=== PATIENT | male | born 1955 | race African-American/Black ===

== ENCOUNTER 2016-07-09 10:20 | Emergency (ER) | payer MEDICAID ==
[~2016-07-09] VITALS: Ht 175.3 cm; Wt 95.3 kg
[2016-07-09] MEDS ORDERED: Meclizine 25mg tab ORAL PRN (11:00)
--- NOTE | 2016-07-09 11:07 | Emergency Room Report ---
History of Present Illness General Chief Complaint: Dizziness Source: Patient Present Illness HPI 61 YOM presents with dizziness. Was up to go to restroom at 5am (6 hours prior to ED arrival), felt dizzy when sitting up and ambulating. Went back to sleep. Goode dizzy again when waking up. No precipitating or assoc chest pain, SOB, headache. Assoc with "mild nausea" but no vomiting, diarrhea, fever/chills. "Pre-diabetic" not on medication. No other meds or PMHx. Had this happen years ago, was told "i have fluid in my ears" was given med, cant remember name. No recurrence since. Denies tinnitus, loss of hearing. Denies toppling to one side when walking, focal weakness to extremities. Allergies: Coded Allergies: No Known Allergies (Unverified , 07/09/16) Patient History Past Medical History: none Past Surgical History: none Pertinent Family History: none Social History: Denies: alcohol use, drug use, smoking Immunizations: UTD Reviewed Nursing Documentation: PMH: Agreed, PSxH: Agreed Nursing Documentation-PMH Hx Diabetes: Yes Review of Systems All Other Systems: negative except mentioned in HPI Physical Exam Vital Signs Date Time Temp Pulse Resp B/P Pulse Ox O2 Delivery O2 Flow Rate FiO2 07/09/16 10:39 98.2 78 17 154/104 100 Room Air Sp02 EP Interpretation: reviewed, abnormal General Appearance: normal inspection, well appearing, no apparent distress, alert, GCS 15, non-toxic Head: normocephalic, atraumatic Eyes: bilateral eye EOMI, bilateral eye PERRL ENT: normal ENT inspection, hearing grossly normal, normal voice, other - Negative pedro luis-hallpike. Dizziness brought in when sitting up straight in bed from lying position Neck: normal inspection, full range of motion, supple, no bony tend Respiratory: normal inspection, lungs clear, normal breath sounds, no respiratory distress, no retraction, no wheezing Cardiovascular #1: regular rate, rhythm, no edema Gastrointestinal: normal inspection, normal bowel sounds, non tender, soft, no guarding, no hernia Genitourinary: no CVA tenderness Musculoskeletal: normal inspection, back normal, normal range of motion, Kraig' s Sign negative Neurologic: normal inspection, alert, oriented x3, responsive, botany technician III-XII nml as tested, motor strength/tone normal, speech normal, other - No cerebellar signs. no ataxia on walking bedside. Negative Romberg. Psychiatric: normal inspection, judgement/insight normal, mood/affect normal Skin: normal inspection, normal color, no rash Lymphatic: normal inspection Medical Decision Making Diagnostic Impression: Primary Impression: Vertigo Additional Impression: NEETA (acute kidney injury) ER Course Likely peripheral vertigo, BPPV. VS notable my hypertension, likely from vertigo. Afebrile. Glucose 110. Negative Pedro Luis-hallpike No cerebellar signs of acute focal neuro deficits Dizziness brought in with change of position, ?orthostatic hypotension? PLAN Labs, meclizine, reassess Rhythm Strip Diag. Results EP Interpretation: yes Rate: 92 Rhythm: NSR, no PVC's, other - PVCs Reevaluation Time: 14:05 Last Vital Signs Date Time Temp Pulse Resp B/P Pulse Ox O2 Delivery O2 Flow Rate FiO2 07/09/16 10:39 98.2 78 17 154/104 100 Room Air Status: improved Reevaluation Impression Labs: No leuks. H&H stable. Mild NEETA CT head negative Dizziness resolved. Able to ambulate/change posiiton without vertigo. Dx: Vertigo Likely peripheral Improved with meclizine, IVF hydration Mild NEETA from dehydration Advised PMD followup to recheck kidney function, renal sono Rx meclizine as needed Disposition: HOME, SELF-CARE Scripts Meclizine Hcl* (MECLIZINE*) 25 Mg Tablet 25 MG ORAL BID for 7 Days, #30 TAB Prov: OSVALDO CHAPARRO M.D. 07/09/16 OSVALDO CHAPARRO M.D. Jul 09, 2016 11:07
[2016-07-09 11:28] LABS: BASOPHILS % (AUTO) 1.3 % (0.0-2.0); EOSINOPHILS % (AUTO) 4.5 % (0.0-3.0); LYMPHOCYTES % (AUTO) 25.1 % (20.0-45.0); MEAN CORPUSCULAR HEMOGLOBIN 26.1 PG (27.0-31.0); MEAN CORPUSCULAR VOLUME 82 FL (80-99); MEAN PLATELET VOLUME 7.5 FL (6.5-10.1); MONOCYTES % (AUTO) 9.5 % (1.0-10.0); NEUTROPHILS % (AUTO) 59.6 % (45.0-75.0); PLATELET COUNT 233 K/UL (150-450); RED BLOOD COUNT 5.82 M/UL (4.70-6.10); WHITE BLOOD COUNT 4.6 K/UL (4.8-10.8)
[2016-07-09 11:44] LABS: TROPONIN I < 0.30 ng/mL (<=0.30)
[2016-07-09 11:45] LABS: ALANINE AMINOTRANSFERASE 39 U/L (3-41); ALBUMIN/GLOBULIN RATIO 1.8 (1.0-2.7); ANION GAP 14 (5-15); ASPARTATE AMINO TRANSFERASE 32 U/L (5-40); CALCIUM 9.1 mg/dL (8.6-10.2); CARBON DIOXIDE 27 mEQ/L (20-30); CHLORIDE 98 mEQ/L (98-107); CREATININE 1.3 mg/dL (0.7-1.2); GLOMERULAR FILTRATION RATE > 60 mL/min (>60); HEMOLYSIS 4; POTASSIUM 4.1 mEQ/L (3.4-4.9); SODIUM 139 mEQ/L (135-145); TOTAL PROTEIN 6.5 g/dL (6.6-8.7)
[2016-07-09] MEDS ORDERED: ASPIRIN EC81 MG ORAL (11:49)
--- NOTE | 2016-07-09 11:55 | Diagnostic Imaging Report ---
Indication: Chest Pain Comparison: None A single view chest radiograph was obtained. Findings: Cardiomediastinal appearance is within normal limits for age. Pulmonary vascularity is appropriate. The diaphragmatic contour is smooth and costophrenic angles are sharp. No pleural effusions are identified. The bones are unremarkable. Impression: No acute findings
[2016-07-09] MEDS ORDERED: PRAVASTATIN SOD20 M1 ORAL (12:20)
[2016-07-09 12:58] VITALS: BP 134/84
[2016-07-09] MEDS ORDERED: OMEGA 3 1,0001 EACH PO (13:09)
[2016-07-09] MEDS ORDERED: TAMSULOSIN HCL0.4 MG ORAL (13:10)
[2016-07-09] MEDS ORDERED: CENTRUM SILVER1 EAC2 PO (13:12)
[2016-07-09] MEDS ORDERED: ADVIL200 M2 ORAL (13:14)
[2016-07-09] MEDS ORDERED: TYLENOL EXTRA500 MG ORAL (13:15)
[2016-07-09] MEDS ORDERED: ULORIC80 MG ORAL (13:17)
[2016-07-09] MEDS ORDERED: ULORIC40 MG ORAL (13:26)
[2016-07-09] MEDS ORDERED: COLCHICINE0.6 M1 PO (13:26)
[2016-07-09] MEDS ORDERED: MECLIZINE HCL25 MG ORAL (13:27)
[2016-07-09 14:16] VITALS: BP 127/91
--- NOTE | 2016-07-13 18:20 | Cardiology Report ---
APPROVED REPORT EKG Measurement Heart [id number] Normal sinus rhythm Normal ECG
== END 2016-07-09 14:16 | disposition home or self-care (01) ==
LOC: EMR 11:11
DX: N17.9 Acute kidney failure, unspecified (principal); R42 Dizziness and giddiness; E11.9 Type 2 diabetes mellitus without complications
CPT/HCPCS: 36415; 71010; 80053; 82550; 82553; 82962; 84484; 85025; 93005; 99283

== ENCOUNTER 2017-10-14 10:32 | Inpatient (IN) | payer MEDICAID ==
[~2017-10-14] VITALS: Ht 172.7 cm; Wt 79.4 kg
[2017-10-14 10:32] VITALS: BP 118/82
[~2017-10-14 10:32] MED LIST: ADVIL200 M2 ORAL; ASPIRIN EC81 MG ORAL; CENTRUM SILVER1 EAC2 PO; COLCHICINE0.6 M1 PO; MECLIZINE HCL25 MG ORAL; OMEGA 3 1,0001 EACH PO; PRAVASTATIN SOD20 M1 ORAL; TAMSULOSIN HCL0.4 MG ORAL; TYLENOL EXTRA500 MG ORAL; ULORIC40 MG ORAL; ULORIC80 MG ORAL
[2017-10-14] MEDS ORDERED: Morphine Sulfate 4mg/ml Inj IVP ONE ×2 (11:00→14:30)
[2017-10-14] MEDS ORDERED: Ketorolac 30mg Inj IV ONE (11:00)
[2017-10-14 11:29] LABS: BASOPHILS % (AUTO) 1.5 % (0.0-2.0); EOSINOPHILS % (AUTO) 2.7 % (0.0-3.0); HEMATOCRIT 45.2 % (42.0-52.0); HEMOGLOBIN 14.6 G/DL (14.2-18.0); MEAN CORPUSCULAR VOLUME 80 FL (80-99); MONOCYTES % (AUTO) 7.9 % (1.0-10.0); NEUTROPHILS % (AUTO) 60.9 % (45.0-75.0); PLATELET COUNT 202 K/UL (150-450); RED BLOOD COUNT 5.64 M/UL (4.70-6.10); RED CELL DISTRIBUTION WIDTH 13.7 % (11.6-14.8); WHITE BLOOD COUNT 4.3 K/UL (4.8-10.8)
--- NOTE | 2017-10-14 11:38 | Diagnostic Imaging Report ---
Indication: Back pain Technique: Continuous helical transaxial imaging of the lumbar spine was obtained from the lung bases to the pubic symphysis. No IV contrast was administered. Coronal 2-D reformats were also obtained. Study obtained in a Siemens sensation [address] Total Dose length Product (DLP): 494.[address] Dose Index Volume (CTDIvol): 16.92 mGy Comparison: None Findings: There is no evidence of an acute fracture or malalignment. Height and configuration of the vertebral bodies and intervertebral discs are within normal limits. The facets are unremarkable. There is no soft tissue swelling. Minimal endplate spurs are noted. Aorta is mildly calcified. Impression: Negative lumbar spine CT The CT scanner at [facility] is accredited by the [employer] and the scans are performed using dose optimization techniques as appropriate to a performed exam including Automatic Exposure control.
[2017-10-14 11:39] LABS: APPEARANCE,URINE CLEAR; GLUCOSE, URINE (UA) NEGATIVE (NEGATIVE); KETONES,URINE NEGATIVE (NEGATIVE); NITRITE,URINE NEGATIVE (NEGATIVE); PH,URINE 6 (4.5-8.0)
[2017-10-14 11:40] LABS: ANION GAP 9 mmol/L (5-15); BLOOD UREA NITROGEN 18 mg/dL (7-18); CALCIUM 9.1 MG/DL (8.5-10.1); CARBON DIOXIDE 25 MMOL/L (21-32); CHLORIDE 108 MMOL/L (98-107); CREATININE 1.4 MG/DL (0.55-1.30); POTASSIUM 4.1 MMOL/L (3.5-5.1); SODIUM 142 MMOL/L (136-145)
[2017-10-14 11:41] LABS: INR 1.1 (0.9-1.1)
[2017-10-14 11:44] LABS: ALANINE AMINOTRANSFERASE 38 U/L (12-78); ALBUMIN 3.7 G/DL (3.4-5.0); ALBUMIN/GLOBULIN RATIO 1.1 (1.0-2.7); ALKALINE PHOSPHATASE 97 U/L (46-116); ASPARTATE AMINO TRANSFERASE 21 U/L (15-37); BILIRUBIN,TOTAL 0.4 MG/DL (0.2-1.0)
[2017-10-14 11:46] LABS: BILIRUBIN, URINE NEGATIVE (NEGATIVE); COLOR,URINE PALE YELLOW; PROTEIN,URINE NEGATIVE (NEGATIVE); UROBILINOGEN,URINE NORMAL MG/DL (0.0-1.0)
[2017-10-14 11:47] LABS: LEUKOCYTE ESTERASE ,URINE NEGATIVE (NEGATIVE)
[2017-10-14 12:39] VITALS: BP 118/79
--- NOTE | 2017-10-14 15:54 | Emergency Room Report ---
History of Present Illness General Chief Complaint: Back Pain-No Injury Source: Patient Present Illness HPI Patient presents with severe back pain. It's in her lower back and radiates down both legs. Feels like nerve pain. He's had back issues in the past but this is something completely different. He denies any saddle numbness, fevers, incontinence, blood thinners, oncologic problems, trauma. He has low grade back issues for several months, then 2 days ago, he started feeling this severe pain and having weakness when standing. Pain worsened when bends or sits also. He has had difficulty moving his bowels for several months, not worsened with this increased pain. H/O gout and chronic renal disease. Has been taking colchicine and "a nerve pill" for the pain. (He mentions Pravachol.) Patient is diabetic.not on meds ("borderline") Allergies: Coded Allergies: No Known Allergies (Unverified , 07/09/16) Patient History Past Medical History: see triage record Social History: Denies: smoking Social History Narrative used to work for [employer] Reviewed Nursing Documentation: PMH: Agreed; PSxH: Agreed Nursing Documentation-PMH Hx Diabetes: Yes Review of Systems All Other Systems: negative except mentioned in HPI Physical Exam Vital Signs Date Time Temp Pulse Resp B/P (MAP) Pulse Ox O2 Delivery O2 Flow Rate FiO2 10/14/17 10:28 98.2 70 18 118/82 98 98.2 10/14/17 10:32 Room Air Sp02 EP Interpretation: reviewed, normal General Appearance: well appearing, no apparent distress, GCS 15 Head: normocephalic Eyes: bilateral eye normal inspection, bilateral eye PERRL ENT: moist mucus membranes Neck: supple Respiratory: chest non-tender, lungs clear, normal breath sounds Cardiovascular #1: regular rate, rhythm Cardiovascular #2: 2+ radial (R) Gastrointestinal: normal inspection, normal bowel sounds, non tender, no mass, non-distended Musculoskeletal: digits/nails normal, normal range of motion, no calf tenderness, pelvis stable, tender - lumbar area, SLR with some pain in lumbar area, when sits, "nerve" pain bilat post LE, no bone tenderness Neurologic: alert, oriented x3, motor strength/tone normal, DTRs symmetric, sensory intact, cerebellar normal, normal gait, speech normal Psychiatric: mood/affect normal Reflexes: 2+ knee (R), 2+ knee (L), 2+ ankle (R), 2+ ankle (L) Skin: normal inspection, warm/dry Medical Decision Making Diagnostic Impression: Primary Impression: Intractable low back pain Additional Impression: Renal insufficiency ER Course Patient presents with non-traumatic back pain. DDx: strain, spasm, disk disease , bilateral sciatica, adverse reaction to Pravachol amongst others. No red flag sy or signs except for weakness when standing. Evaluation with labs and CT of back. Treatment with toradol and morphine. Concern over "nerve" pain with standing and moving. The fact this is bilateral is against sciatica. As the pain is worse with changing position, this appears musculoskeletal in origin. No significant muscle spasm appreciated with exam. The patient does not appear to be drug seeking. Labs significant for normal WBC, CMP (some renal insufficiency) and ESR. UA clear. CK normal. Improved with initial analgesia, however states still with severe pain. Worsened with attempt to sit up and move. CT results reviewed with patient. Still with severe pain. MRI ordered. MRI with DJD, no cord lesions/compression. Still severe pain. The etiology of this severe pain is not clear at this time and the patient merits admission, observation and re-evaluation. Admit med. Discussed with Dr. Lopez who accepts patient for medical admission. Laboratory Tests Test 10/14/17 11:00 White Blood Count 4.3 K/UL (4.8-10.8) L Red Blood Count 5.64 M/UL (4.70-6.10) Hemoglobin 14.6 G/DL (14.2-18.0) Hematocrit 45.2 % (42.0-52.0) Mean Corpuscular Volume 80 FL (80-99) Mean Corpuscular Hemoglobin 26.0 PG (27.0-31.0) L Mean Corpuscular Hemoglobin Concent 32.3 G/DL (32.0-36.0) Red Cell Distribution Width 13.7 % (11.6-14.8) Platelet Count 202 K/UL (150-450) Mean Platelet Volume 6.5 FL (6.5-10.1) Neutrophils (%) (Auto) 60.9 % (45.0-75.0) Lymphocytes (%) (Auto) 27.0 % (20.0-45.0) Monocytes (%) (Auto) 7.9 % (1.0-10.0) Eosinophils (%) (Auto) 2.7 % (0.0-3.0) Basophils (%) (Auto) 1.5 % (0.0-2.0) Erythrocyte Sedimentation Rate 10 MM/HR (0-20) Prothrombin Time 10.9 SEC (9.30-11.50) Prothrombin Time INR 1.1 (0.9-1.1) PTT 26 SEC (23-33) Urine Color Pale yellow Urine Appearance Clear Urine pH 6 (4.5-8.0) Urine Specific Bath 1.020 (1.005-1.035) Urine Protein Negative (NEGATIVE) Urine Glucose (UA) Negative (NEGATIVE) Urine Ketones Negative (NEGATIVE) Urine Occult Blood Negative (NEGATIVE) Urine Nitrite Negative (NEGATIVE) Urine Bilirubin Negative (NEGATIVE) Urine Urobilinogen Normal MG/DL (0.0-1.0) Urine Leukocyte Esterase Negative (NEGATIVE) Urine RBC 0-2 /HPF (0 - 0) H Urine WBC 0-2 /HPF (0 - 0) Urine Squamous Epithelial Cells Occasional /LPF Urine Bacteria Occasional /HPF (NONE) Sodium Level 142 MMOL/L (136-145) Potassium Level 4.1 MMOL/L (3.5-5.1) Chloride Level 108 MMOL/L (98-107) H Carbon Dioxide Level 25 MMOL/L (21-32) Anion Gap 9 mmol/L (5-15) Blood Urea Nitrogen 18 mg/dL (7-18) Creatinine 1.4 MG/DL (0.55-1.30) H Estimate Glomerular Filtration Rate > 60 mL/min (>60) Glucose Level 130 MG/DL (74-106) H Uric Acid 6.2 MG/DL (2.6-7.2) Calcium Level 9.1 MG/DL (8.5-10.1) Total Bilirubin 0.4 MG/DL (0.2-1.0) Aspartate Amino Transferase (AST) 21 U/L (15-37) Alanine Aminotransferase (ALT) 38 U/L (12-78) Alkaline Phosphatase 97 U/L (46-116) Total Protein 7.1 G/DL (6.4-8.2) Albumin 3.7 G/DL (3.4-5.0) Globulin 3.4 g/dL Albumin/Globulin Ratio 1.1 (1.0-2.7) CT/MRI/US Diagnostic Results CT/MRI/US Diagnostic Results #1: Imaging Test Ordered: CT back Impression min DJD CT/MRI/US Diagnostic Results #2: Imaging Test Ordered: MRI back Impression DJD, no compressive lesions Last Vital Signs Date Time Temp Pulse Resp B/P (MAP) Pulse Ox O2 Delivery O2 Flow Rate FiO2 10/14/17 23:52 96.8 20 113/68 93 Room Air 96.8 10/14/17 19:49 74 Status: improved Disposition: ADMITTED INPATIENT Condition: Serious Referrals: [facility],REFERRING (PCP) JOY PRADO (Family) Maycol Pappas M.D. Oct 14, 2017 15:54
--- NOTE | 2017-10-14 16:03 | Diagnostic Imaging Report ---
Indication: Back pain Technique: MRI examination of the lumbar spine was performed in a 1.5 Marjan magnet. Sequences obtained include sagittal and axial T1 and T2 fast spin echo, and sagittal STIR. Comparison: none Findings: Bone marrow signal and alignment are normal. The distal part of the spinal cord is normal in appearance. The conus medullaris is seen at about T12. The T12-L1 level: Normal L1-2: Normal L2-3: Mild desiccation of the disc is demonstrated. This level is otherwise unremarkable. L2-3: There is mild narrowing and desiccation of the discs. There is a mild concentric disc bulge and mild hypertrophy of the facets. There is no central canal stenosis. Minimal bilateral foraminal stenosis. No visualized compression of nerve roots. L4-5: Mild desiccation and narrowing of intervertebral discs. Mild concentric disc bulge and hypertrophied facets. There is minimal foraminal stenosis, right worse than left. There is no central canal stenosis. No visualized compression of nerve roots. L5-S1: Minimal concentric disc bulge noted. Mild hypertrophy of the facets demonstrated. No central canal stenosis demonstrated. Minimal bilateral foraminal stenosis. No visualized compression of nerve roots. Urinary bladder appears distended. IMPRESSION: Mild degenerative lumbar spondylosis as described above. No visualized nerve root compression, significant stenosis of the central canal or foramen. Distended urinary bladder
[2017-10-14 16:07] VITALS: BP 119/78
[2017-10-14 16:58] VITALS: BP 117/73
[2017-10-14] MEDS: Cyclobenzaprine 10mg Tab ORAL SCH (18:00)
--- NOTE | 2017-10-14 19:01 | History and Physical Report ---
DATE OF ADMISSION: 10/14/2017 REASON FOR ADMISSION: New onset severe back pain. HISTORY OF PRESENT ILLNESS: The patient is a pleasant 62-year-old gentleman who presented to the emergency room with new onset severe back pain, which he says started last Thursday. He says that over the last several days, he has been unable to sleep comfortably, cannot find a comfortable position, is having difficulty even going from sitting to standing position due to this severe low back pain. He has been able to control his bowels, both urine and stool nowak. He says that as he walks, the pain will radiate tremendously from his lower area down to the back of his both legs. However, he does have to find certain standing and lying positions to find relief. He has noted that muscle relaxers and anti-inflammatories have helped, but he has not had tremendous relief over the past week. PAST MEDICAL HISTORY: 1. Hyperlipidemia. 2. Gout. 3. BPH. PAST SURGICAL HISTORY: Cyst removal. ALLERGIES: None. FAMILY HISTORY: Positive for diabetes and hypertension. REVIEW OF SYSTEMS: NEUROLOGIC: The patient denies headache, change in vision, syncope, or presyncopal episodes. CARDIOVASCULAR: No current chest pain, palpitations, or angina. PULMONARY: No difficulty breathing, productive cough, or sputum. GASTROINTESTINAL/GENITOURINARY: No changes in urinary or bowel habits. No nausea, vomiting, or diarrhea. ENDOCRINOLOGY: No night sweats, fevers, or chills. MUSCULOSKELETAL: The patient complaining of low back pain. PHYSICAL EXAMINATION: VITAL SIGNS: Blood pressure 119/78, respiratory rate 17, pulse 82, temperature 98.1 degrees, and 97% oxygen on room air. GENERAL: The patient awake, alert, in mild distress. HEENT: Extraocular muscles intact. No lymphadenopathy. Oropharyngeal mucosa clear and dry. CARDIOVASCULAR: S1 and S2. No rubs or gallops. PULMONARY: Clear to auscultation bilaterally. No rales, rhonchi or wheezes. ABDOMEN: Nondistended and nontender. EXTREMITIES: No edema. NEUROLOGIC: The patient can raise both legs approximately, 4/5 strength, however, complains with pain when he is lifting his legs. He is able to ambulate in the room and move up and down out of bed. LABORATORY AND DIAGNOSTIC DATA: Labs dated 10/14/2017, sodium 142, potassium 4.1, BUN 18, creatinine 1.4, and calcium 9.1. White cell count 4.3, hemoglobin 14.6, and platelet count 202. INR 1.1. Urinalysis otherwise negative. ASSESSMENT AND PLAN: 1. Hyperlipidemia. Continue pravastatin. 2. Deep venous thrombosis prophylaxis with Lovenox subcutaneous. 3. Acute kidney injury versus chronic kidney disease. Creatinine currently 1.4. The patient was taking NSAIDs for his low back pain. This will be discontinued and IV hydration initiated. Recheck Chem-7 in the morning. If renal function not normal, we will investigate further. 4. Severe low back pain. Upon history and examination, it seems that the patient most likely has lower back lumbar muscle strain/spasm. The patient will be given Flexeril for muscle relaxation and p.r.n. IV morphine. The patient did undergo a lumbar spine MRI, which only showed mild degenerative lumbar spondylosis. No visualized nerve root compression or stenosis of canal or foramen. He also underwent a CT of the spine, which was negative. 5. At this time, the patient's lower back pain will be controlled. As we investigate, there is the possibility of a neurologist can evaluate the patient here at [facility]. Billy Riley MD DR: ALEXANDRO JOB#: [id number] CC: MIGEL
[2017-10-14 19:49] VITALS: BP 112/60
[2017-10-14] MEDS: Tamsulosin 0.4mg cap ORAL SCH (20:39)
[2017-10-14 23:52] VITALS: BP 113/68
[2017-10-15] MEDS: Morphine Sulfate 2mg/ml Inj IVP PRN ×5 (00:27→20:43)
[2017-10-15 00:53] LABS: CREATINE KINASE 242 U/L (26-308)
[2017-10-15 04:24] VITALS: BP 129/57
[2017-10-15 07:39] LABS: BASOPHILS % (AUTO) 1.2 % (0.0-2.0); EOSINOPHILS % (AUTO) 5.4 % (0.0-3.0); HEMATOCRIT 44.5 % (42.0-52.0); HEMOGLOBIN 14.4 G/DL (14.2-18.0); LYMPHOCYTES % (AUTO) 25.7 % (20.0-45.0); MEAN CORPUSCULAR VOLUME 80 FL (80-99); MONOCYTES % (AUTO) 8.5 % (1.0-10.0); NEUTROPHILS % (AUTO) 59.2 % (45.0-75.0); PLATELET COUNT 209 K/UL (150-450); RED BLOOD COUNT 5.56 M/UL (4.70-6.10); RED CELL DISTRIBUTION WIDTH 13.5 % (11.6-14.8); WHITE BLOOD COUNT 5.6 K/UL (4.8-10.8)
[2017-10-15 08:00] VITALS: BP 116/62
[2017-10-15 08:09] LABS: ANION GAP 6 mmol/L (5-15); BLOOD UREA NITROGEN 18 mg/dL (7-18); CALCIUM 8.8 MG/DL (8.5-10.1); CARBON DIOXIDE 28 MMOL/L (21-32); CHLORIDE 108 MMOL/L (98-107); CREATININE 1.4 MG/DL (0.55-1.30); POTASSIUM 4.3 MMOL/L (3.5-5.1); SODIUM 142 MMOL/L (136-145)
[2017-10-15] MEDS: Aspirin EC 81mg tab ORAL SCH (08:50)
[2017-10-15] MEDS: Cyclobenzaprine 10mg Tab ORAL SCH ×3 (08:50→22:39)
--- NOTE | 2017-10-15 08:54 | Nephrology Progress Note ---
Assessment/Plan Assessment/Plan 1. Back Pain- Imaging studies negative - Neurology consult placed - question possible maligering for pain medications, will clear medically first - for now flexeril and prn morphine 2. CKD 3A- Cr stable at 1.4 - will need CKD evaluation post DC 3. HLP- statin 4. DVT prophylaxsis with Lovenox Subjective Date patient seen: Oct 15, 2017 Time patient seen: 08:51 ROS Limited/Unobtainable: No Constitutional: Reports: other - back pain Allergies: Coded Allergies: No Known Allergies (Unverified , 07/09/16) All Systems: reviewed and negative except above Subjective Patient says back hurting Objective Last 24 Hour Vital Signs Date Time Temp Pulse Resp B/P (MAP) Pulse Ox O2 Delivery O2 Flow Rate FiO2 10/15/17 04:45 Room Air 10/15/17 04:24 10/14/17 23:52 96.8 20 113/68 93 Room Air 96.8 10/14/17 19:49 97.9 74 20 112/60 98 Room Air 97.9 10/14/17 18:59 98.1 10/14/17 18:00 98.1 10/14/17 16:58 98.1 71 18 117/73 96 98.1 10/14/17 16:09 98.1 82 17 119/78 97 Room Air 98.1 10/14/17 16:07 98.1 82 17 119/78 97 Room Air 98.1 10/14/17 12:39 98.0 65 17 118/79 95 Room Air 98.0 10/14/17 10:32 98.2 74 18 118/82 98 Room Air 98.2 10/14/17 10:28 98.2 70 18 118/82 98 98.2 Intake and Output 10/14/17 10/15/17 19:00 07:00 Intake Total 240 ml 500 ml Output Total 600 ml Balance -360 ml 500 ml Intake Oral 240 ml 500 ml Output Urine Total 600 ml # Voids 1 1 Laboratory Tests 10/14/17 11:00: White Blood Count 4.3L, Red Blood Count 5.64, Hemoglobin 14.6, Hematocrit 45.2, Mean Corpuscular Volume 80, Mean Corpuscular Hemoglobin 26.0L, Mean Corpuscular Hemoglobin Concent 32.3, Red Cell Distribution Width 13.7, Platelet Count 202, Mean Platelet Volume 6.5, Neutrophils (%) (Auto) 60.9, Lymphocytes (%) (Auto) 27.0, Monocytes (%) (Auto) 7.9, Eosinophils (%) (Auto) 2.7, Basophils (%) (Auto ) 1.5, Erythrocyte Sedimentation Rate 10, Prothrombin Time 10.9, Prothromb Time International Ratio 1.1, Activated Partial Thromboplast Time 26, Urine Color Pale yellow, Urine Appearance Clear, Urine pH 6, Urine Specific Oriental 1.020, Urine Protein Negative, Urine Glucose (UA) Negative, Urine Ketones Negative, Urine Occult Blood Negative, Urine Nitrite Negative, Urine Bilirubin Negative, Urine Urobilinogen Normal, Urine Leukocyte Esterase Negative, Urine RBC 0-2H, Urine WBC 0-2, Urine Squamous Epithelial Cells Occasional, Urine Bacteria Occasional, Sodium Level 142, Potassium Level 4.1, Chloride Level 108H, Carbon Dioxide Level 25, Anion Gap 9, Blood Urea Nitrogen 18, Creatinine 1.4H, Estimat Glomerular Filtration Rate > 60, Glucose Level 130H, Uric Acid 6.2, Calcium Level 9.1, Total Bilirubin 0.4, Aspartate Amino Transf (AST/SGOT) 21, Alanine Aminotransferase (ALT/SGPT) 38, Alkaline Phosphatase 97, Total Protein 7.1, Albumin 3.7, Globulin 3.4, Albumin/Globulin Ratio 1.1 10/15/17 00:30: Total Creatine Kinase 242 10/15/17 06:35: White Blood Count 5.6, Red Blood Count 5.56, Hemoglobin 14.4, Hematocrit 44.5, Mean Corpuscular Volume 80, Mean Corpuscular Hemoglobin 26.0L, Mean Corpuscular Hemoglobin Concent 32.4, Red Cell Distribution Width 13.5, Platelet Count 209, Mean Platelet Volume 7.1, Neutrophils (%) (Auto) 59.2, Lymphocytes (%) (Auto) 25.7, Monocytes (%) (Auto) 8.5, Eosinophils (%) (Auto) 5.4H, Basophils (%) (Auto ) 1.2, Sodium Level 142, Potassium Level 4.3, Chloride Level 108H, Carbon Dioxide Level 28, Anion Gap 6, Blood Urea Nitrogen 18, Creatinine 1.4H, Estimat Glomerular Filtration Rate > 60, Glucose Level 105, Calcium Level 8.8 Height (Feet): 5 Height (Inches): 8.00 Weight (Pounds): 175 General Appearance: mild distress EENT: normal ENT inspection Neck: normal alignment, supple Cardiovascular: normal rate, regular rhythm Respiratory/Chest: lungs clear, normal breath sounds Abdomen: non tender, soft Edema: no edema noted Arm (L), no edema noted Arm (R), no edema noted Leg (L), no edema noted Leg (R), no edema noted Pedal (L), no edema noted Pedal (R), no edema noted Generalized Billy Riley M.D. Oct 15, 2017 08:54
[2017-10-15] MEDS: Enoxaparin 40mg Inj SUBQ SCH (09:47)
--- NOTE | 2017-10-15 11:43 | Consultation ---
Consult Note Consult Note NEUROLOGY CONSULTATION: Full note dictated #[id number] 62 y/o, RH, BM with PH of borderline DM, CKD and episodic LBP for the last 30 years. He was functioning relatively well until about a week ago when he developed mild LBP. Over the next few days the pain got much worse. He took Naprosyn for it which helped a little. Then over the last 2-3 days the LBP got much worse and started to radiate down the back of both legs into the legs. He thus presented to the [facility] and has since been admitted. The pain is better today with the Flexeril and Morphine but still significant. ON EXAM: G 2/4 LS spasm. Globally diminished DTRs Rest of exam normal. IMPRESSION: LS strain syndrome with radicular symptoms. REC: Continue Flexeril but increase to 10 mg q 8 Hours. Add Medrol 4 mg tid x 7days. Increase activity as tolerated. Sandra Willis M.D., M.S.P.SANDRA PIERSON Oct 15, 2017 11:43
[2017-10-15 12:00] VITALS: BP 118/72
[2017-10-15 16:00] VITALS: BP 133/84
--- NOTE | 2017-10-15 17:01 | Consultation ---
NEUROLOGY CONSULTATION DATE OF CONSULTATION: 10/15/2017 CONSULTING PHYSICIAN: Ankur Willis M.D. REFERRING PHYSICIAN: Billy Riley M.D. HISTORY: Mr. Jermain Hwang is a 62-year-old, right-handed, black gentleman with a past history of borderline diabetes mellitus, chronic kidney disease, and episodic low back pain for the last 30 years. He was functioning relatively well until about a week ago when he developed mild low back pain. Over the next few days, this pain got much worse. He took some Naprosyn for it, which helped a little. Over the next few days, the pain got significantly worse and also started to radiate from his low back into the back of both his thighs and into the legs. This pain got so severe that he was unable to stand and walk, and as a result of that presented to the [facility] emergency room. He was evaluated in the emergency room and has since been admitted. This consultation was requested to evaluate the patient from a neurological point of view for his low back pain radiating into his legs. As per the patient, the pain is better today compared to yesterday since he was started on Flexeril and morphine, but it is still significant to a point where he is still unable to stand and walk. He denies any problems with controlling his bowel or bladder. He is uncertain as to whether there is any weakness in the legs and he is also unable to tell me if there are any altered sensations in his legs. PAST MEDICAL HISTORY: Significant for borderline diabetes mellitus, chronic kidney disease, and episodic low back pain. FAMILY HISTORY: Significant for hypertension and diabetes mellitus in other family members. PERSONAL HISTORY: Home: He lives with his cousin. 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 In the past, however, he used to work for [employer]. Habits: He denies the use of alcohol, tobacco, or illicit drugs. PRESENT MEDICATIONS: Lovenox, aspirin 81 mg daily, pravastatin, Flomax, Flexeril 10 mg twice a day, morphine 1 mg q 4 h PRN pain. PHYSICAL EXAMINATION: GENERAL: He is a well-developed, well-nourished, pleasant black gentleman, lying in bed, in no acute distress. VITAL SIGNS: Pulse 74/minute, blood pressure 113/68 mmHg, respirations 20/minute, and temperature 96.8 degrees Fahrenheit. HEAD: Normocephalic and atraumatic. EENT: Examination benign. NECK: No neck rigidity was observed. SPINE: Cervical and thoracic spine were normal. Lumbosacral spine revealed G 2/4 spasm. Straight leg raising: Was 40 degrees bilaterally, limited by pain. NEUROLOGIC EXAMINATION: MENTAL STATUS EXAMINATION: He was awake and alert. He was oriented to person, place, and time. He was able to recall 3/3 words immediately after 1 minute and after 3 minutes on the second trial. He was able to remember presidents Trump through Padilla senior with hints. His mathematical skills were good. His visuospatial function was preserved. SPEECH: He had no dysarthria. LANGUAGE : He had no aphasia. CRANIAL NERVE EXAMINATION: II: The visual betancourt were intact on confrontation testing. III, IV & : External ocular movements were full and the pupils 3 mm in diameter, equal, round, regular, and reactive to light. V: He had normal facial sensations, and the temporales, masseters, and pterygoids functioned normally. VII: He had normal facial expressions and no facial asymmetry. VIII: He was able to hear well bilaterally and he had no nystagmus. IX: The palate moved symmetrically on phonation. X: He had no hoarseness of voice. XI: The sternocleidomastoids and trapezii functioned normally. XII: The tongue was in the midline without any fasciculations or atrophy. MOTOR SYSTEM: The tone was normal in all four extremities. Examination of muscle mass revealed no focal wasting. Examination of power revealed G 5/5 power in all muscle groups. SENSORY EXAMINATION: He had intact sensation to pinprick, light touch, and graphesthesia. COORDIANTION: He performed well on [id number] and nglx-cz-[id number] testing. Romberg test could not be performed because even with the eyes open when he was going to stand with his feet together, he was unsteady. REFLEXES: Trace+ and bilaterally symmetrical at the biceps, triceps, brachioradialis, and knees. 0 at both ankles. The plantar responses were flexor bilaterally. STANCE: He stood up with support on both sides. GAIT: He walked with support on both sides, but complained of severe low back pain radiating into his legs when he walked. DIAGNOSTIC IMPRESSION: 1. Mr. Jermain Hwang is a 62-year-old, right-handed, black gentleman, with past history of borderline diabetes mellitus, chronic kidney disease, and episodic low back pain who had an exacerbation of his low back pain about a week ago, which has progressed to a point where he has become nonfunctional. The pain in the low back radiates into both his lower extremities. 2. On neurological examination, at this time, he does have G 2/4 lumbosacral paraspinal muscle spasm, globally diminished deep tendon reflexes, but the rest of the neurological examination is benign. 3. He has had an MRI scan of the lumbosacral spine performed, which revealed minor degenerative joint disease at multiple levels, but no nerve root impingement and no central spinal stenosis. 4. The patient's history and neurological examination are most compatible with lumbosacral spine strain syndrome with radicular features. RECOMMENDATIONS: 1. The patient was given an explanation of the above-mentioned findings. 2. He is able to tolerate the Flexeril 10 mg twice a day relatively well, so we will increase it to 10 mg q.8 h. 3. Medrol 4 mg 3 times a day for the next 7 days should be added to his therapeutic regimen. 4. He was told to increase his activity as tolerated. Thank you for entrusting me with the care of Mr. Hwang. I shall follow him with you. Ankur Willis M.D., M.S.P.H. : EBENEZER JOB#: [id number] [facility] CENTERNegrita
[2017-10-15 20:00] VITALS: BP 140/91
[2017-10-15] MEDS: Lactulose 20gm/30ml UDC ORAL SCH (20:44)
[2017-10-15] MEDS: Docusate 100mg cap ORAL SCH (20:44)
[2017-10-15] MEDS: Tamsulosin 0.4mg cap ORAL SCH (20:45)
[2017-10-16] VITALS: BP 128/88
[2017-10-16] MEDS: Morphine Sulfate 2mg/ml Inj IVP PRN ×4 (01:44→20:17)
[2017-10-16 04:00] VITALS: BP 137/86
[2017-10-16] MEDS: Cyclobenzaprine 10mg Tab ORAL SCH ×3 (05:39→21:38)
[2017-10-16 07:09] LABS: EOSINOPHILS % (AUTO) 2.1 % (0.0-3.0); HEMATOCRIT 44.6 % (42.0-52.0); HEMOGLOBIN 14.6 G/DL (14.2-18.0); LYMPHOCYTES % (AUTO) 20.5 % (20.0-45.0); MEAN CORPUSCULAR VOLUME 79 FL (80-99); MONOCYTES % (AUTO) 8.1 % (1.0-10.0); NEUTROPHILS % (AUTO) 68.3 % (45.0-75.0); PLATELET COUNT 219 K/UL (150-450); RED BLOOD COUNT 5.63 M/UL (4.70-6.10); WHITE BLOOD COUNT 7.9 K/UL (4.8-10.8)
[2017-10-16 07:22] LABS: ANION GAP 8 mmol/L (5-15); BLOOD UREA NITROGEN 16 mg/dL (7-18); CALCIUM 8.7 MG/DL (8.5-10.1); CARBON DIOXIDE 26 MMOL/L (21-32); CHLORIDE 107 MMOL/L (98-107); CREATININE 1.2 MG/DL (0.55-1.30); SODIUM 140 MMOL/L (136-145)
[2017-10-16 08:00] VITALS: BP 152/90
[2017-10-16] MEDS: Aspirin EC 81mg tab ORAL SCH (08:31)
[2017-10-16] MEDS: Lactulose 20gm/30ml UDC ORAL SCH ×3 (08:32→18:08)
[2017-10-16] MEDS: Docusate 100mg cap ORAL SCH ×2 (08:32→18:08)
[2017-10-16] MEDS: Enoxaparin 40mg Inj SUBQ SCH (09:06)
--- NOTE | 2017-10-16 09:57 | Nephrology Progress Note ---
Assessment/Plan Assessment/Plan 1. Back Pain- Imaging studies negative - Neurology consult appreciated - for now flexeril and prn morphine with steroid 2. CKD 3A- Cr stable at 1.2 - will need CKD evaluation post DC 3. HLP- statin 4. DVT prophylaxsis with Lovenox Plan for DC thierno Subjective Date patient seen: Oct 16, 2017 Time patient seen: 09:56 ROS Limited/Unobtainable: No Allergies: Coded Allergies: No Known Allergies (Unverified , 07/09/16) Subjective Patient says back pain improved Objective Last 24 Hour Vital Signs Date Time Temp Pulse Resp B/P (MAP) Pulse Ox O2 Delivery O2 Flow Rate FiO2 10/16/17 08:00 97.7 75 18 152/90 98 Room Air 97.7 10/16/17 04:00 98.1 75 18 137/86 95 Room Air 98.1 10/16/17 00:00 98.1 80 18 128/88 97 Room Air 98.1 10/15/17 20:00 98.4 68 19 140/91 96 Room Air 98.4 10/15/17 16:07 97.8 10/15/17 16:00 98.2 98 20 133/84 94 Room Air 98.2 10/15/17 15:37 97.8 10/15/17 14:14 97.8 10/15/17 13:15 97.8 10/15/17 12:00 97.8 19 118/72 94 Room Air 97.8 Intake and Output 10/15/17 10/16/17 19:00 07:00 Intake Total 600 ml 700 ml Output Total 1700 ml Balance 600 ml -1000 ml Intake Oral 300 ml IV Total 600 ml 400 ml Output Urine Total 1700 ml # Voids 4 Laboratory Tests 10/16/17 05:40: White Blood Count 7.9, Red Blood Count 5.63, Hemoglobin 14.6, Hematocrit 44.6, Mean Corpuscular Volume 79L, Mean Corpuscular Hemoglobin 25.9L, Mean Corpuscular Hemoglobin Concent 32.6, Red Cell Distribution Width 13.0, Platelet Count 219, Mean Platelet Volume 7.4, Neutrophils (%) (Auto) 68.3, Lymphocytes (% ) (Auto) 20.5, Monocytes (%) (Auto) 8.1, Eosinophils (%) (Auto) 2.1, Basophils ( %) (Auto) 1.0, Sodium Level 140, Potassium Level 4.0, Chloride Level 107, Carbon Dioxide Level 26, Anion Gap 8, Blood Urea Nitrogen 16, Creatinine 1.2, Estimat Glomerular Filtration Rate > 60, Glucose Level 102, Calcium Level 8.7 Height (Feet): 5 Height (Inches): 8.00 Weight (Pounds): 175 General Appearance: no apparent distress, alert EENT: normal ENT inspection Neck: normal alignment, supple Cardiovascular: normal rate, regular rhythm Respiratory/Chest: lungs clear, normal breath sounds Abdomen: non tender, soft Edema: no edema noted Arm (L), no edema noted Arm (R), no edema noted Leg (L), no edema noted Leg (R), no edema noted Pedal (L), no edema noted Pedal (R), no edema noted Generalized Billy Riley M.D. Oct 16, 2017 09:57
[2017-10-16 12:00] VITALS: BP 143/90
--- NOTE | 2017-10-16 13:17 | Neurology Progress Note ---
Interim History Interim History Interim History Mr. Hwang feels much better today. The low back pain has improved significantly. The radiation of the pain is also much less. He is able to walk independently now - however the walking is effortful. He denies any new neurologic symptoms. Review of Systems Neuro Review of Systems Benign. Objective Physical Exam Last Vital Signs Date Time Temp Pulse Resp B/P (MAP) Pulse Ox O2 Delivery O2 Flow Rate FiO2 10/16/17 12:34 97.7 10/16/17 12:00 82 18 143/90 98 Room Air Laboratory Tests Test 10/16/17 05:40 White Blood Count 7.9 K/UL (4.8-10.8) Red Blood Count 5.63 M/UL (4.70-6.10) Hemoglobin 14.6 G/DL (14.2-18.0) Hematocrit 44.6 % (42.0-52.0) Mean Corpuscular Volume 79 FL (80-99) L Mean Corpuscular Hemoglobin 25.9 PG (27.0-31.0) L Mean Corpuscular Hemoglobin Concent 32.6 G/DL (32.0-36.0) Red Cell Distribution Width 13.0 % (11.6-14.8) Platelet Count 219 K/UL (150-450) Mean Platelet Volume 7.4 FL (6.5-10.1) Neutrophils (%) (Auto) 68.3 % (45.0-75.0) Lymphocytes (%) (Auto) 20.5 % (20.0-45.0) Monocytes (%) (Auto) 8.1 % (1.0-10.0) Eosinophils (%) (Auto) 2.1 % (0.0-3.0) Basophils (%) (Auto) 1.0 % (0.0-2.0) Sodium Level 140 MMOL/L (136-145) Potassium Level 4.0 MMOL/L (3.5-5.1) Chloride Level 107 MMOL/L (98-107) Carbon Dioxide Level 26 MMOL/L (21-32) Anion Gap 8 mmol/L (5-15) Blood Urea Nitrogen 16 mg/dL (7-18) Creatinine 1.2 MG/DL (0.55-1.30) Estimat Glomerular Filtration Rate > 60 mL/min (>60) Glucose Level 102 MG/DL (74-106) Calcium Level 8.7 MG/DL (8.5-10.1) Neurologic Exam Objective PHYSICAL EXAMINATION: GENERAL: He is a well-developed, well-nourished, pleasant black gentleman, lying in bed, in no acute distress. HEAD: Normocephalic and atraumatic. EENT: Examination benign. NECK: No neck rigidity was observed. SPINE: Cervical and thoracic spine were normal. Lumbosacral spine revealed G 1/4 spasm. Straight leg raising: Was 40 degrees bilaterally, limited by pain. NEUROLOGIC EXAMINATION: MENTAL STATUS EXAMINATION: He was awake and alert. He was oriented to person, place, and time. He was able to recall 3/3 words immediately after 1 minute and after 3 minutes. He was able to remember presidents Trump through Padilla senior. His mathematical skills were good. His visuospatial function was preserved. SPEECH: He had no dysarthria. LANGUAGE : He had no aphasia. CRANIAL NERVE EXAMINATION: II: The visual betancourt were intact on confrontation testing. III, IV & : External ocular movements were full and the pupils 3 mm in diameter, equal, round, regular, and reactive to light. V: He had normal facial sensations, and the temporales, masseters, and pterygoids functioned normally. VII: He had normal facial expressions and no facial asymmetry. VIII: He was able to hear well bilaterally and he had no nystagmus. IX: The palate moved symmetrically on phonation. X: He had no hoarseness of voice. XI: The sternocleidomastoids and trapezii functioned normally. XII: The tongue was in the midline without any fasciculations or atrophy. MOTOR SYSTEM: The tone was normal in all four extremities. Examination of muscle mass revealed no focal wasting. Examination of power revealed G 5/5 power in all muscle groups. SENSORY EXAMINATION: He had intact sensation to pinprick, light touch, and graphesthesia. COORDIANTION: He performed well on [id number] and udek-ke-rlym testing. Romberg test he swayed but did not fall to one side or the other. REFLEXES: Trace+ and bilaterally symmetrical at the biceps, triceps, brachioradialis, and knees. 0 at both ankles. The plantar responses were flexor bilaterally. STANCE: He stood up independently. GAIT: He walked well independently. Impression/Recommendations Diagnostic Impression 1. Mr. Jermain Hwang is a 62-year-old, right-handed, black gentleman, with past history of borderline diabetes mellitus, chronic kidney disease, and episodic low back pain who had an exacerbation of low back pain about a week ago, which progressed to a point where he became nonfunctional. The pain in the low back was radiating into both his lower extremities. 2. He feels much better today. The low back pain has improved significantly. The radiation of the pain is also much less. He is able to walk independently now - however the walking is effortful. He denies any new neurologic symptoms. 3. On neurological examination, at this time, he does have G 1/4 lumbosacral paraspinal muscle spasm, and globally diminished deep tendon reflexes, but the rest of the neurological examination is benign. 4. He has had an MRI scan of the lumbosacral spine performed, which revealed minor degenerative joint disease at multiple levels, but no nerve root impingement and no central spinal stenosis. 5. The patient's history and neurological examination are most compatible with lumbosacral spine strain syndrome with radicular features. 6. His symptoms are significantly better on his present therapeutic regimen with no significant side effects. Recommendations 1. Continue present management. 2. Continue Flexeril 10 mg q 8 hours. 3. Medrol 4 mg 3 times a day for a total of 7 days. 4. Increase activity as tolerated. Sandra Easley M.D., M.S.P.H. SANDRA EASLEY Oct 16, 2017 13:17
[2017-10-16 16:00] VITALS: BP 140/88
[2017-10-16 20:00] VITALS: BP 143/99
[2017-10-16] MEDS: Tamsulosin 0.4mg cap ORAL SCH (20:18)
[2017-10-17] VITALS: BP 136/100
[2017-10-17 04:00] VITALS: BP 132/86
[2017-10-17] MEDS: Cyclobenzaprine 10mg Tab ORAL SCH (05:42)
[2017-10-17 07:22] LABS: ANION GAP 7 mmol/L (5-15); BLOOD UREA NITROGEN 17 mg/dL (7-18); CALCIUM 9.2 MG/DL (8.5-10.1); CARBON DIOXIDE 28 MMOL/L (21-32); CHLORIDE 103 MMOL/L (98-107); CREATININE 1.3 MG/DL (0.55-1.30); POTASSIUM 4.5 MMOL/L (3.5-5.1); SODIUM 138 MMOL/L (136-145)
--- NOTE | 2017-10-17 08:33 | Nephrology Progress Note ---
Assessment/Plan Assessment/Plan 1. Back Pain- Imaging studies negative - Neurology consult appreciated - for now flexeril and prn morphine with steroid - back pain vastly improved and patient now ambulating. Feels well and stable for DC - will complete 7 days of steroid and flexeril 2. CKD 3A- Cr stable - will need CKD evaluation post DC 3. HLP- statin 4. DVT prophylaxsis with Lovenox Subjective Date patient seen: Oct 17, 2017 Time patient seen: 08:31 ROS Limited/Unobtainable: No Allergies: Coded Allergies: No Known Allergies (Unverified , 07/09/16) Subjective Patient says back pain improved and is walking much better. Feels well enough to be discharged Objective Last 24 Hour Vital Signs Date Time Temp Pulse Resp B/P (MAP) Pulse Ox O2 Delivery O2 Flow Rate FiO2 10/17/17 04:00 98.1 65 20 132/86 96 Room Air 98.1 10/17/17 00:00 97.7 78 17 136/100 97 Room Air 97.7 10/16/17 20:00 98.1 76 20 143/99 97 Room Air 98.1 10/16/17 16:00 98.3 84 20 140/88 95 Room Air 98.3 10/16/17 14:18 97.7 10/16/17 13:19 97.7 10/16/17 13:04 97.7 10/16/17 12:34 97.7 10/16/17 12:00 98.1 82 18 143/90 98 Room Air 98.1 Intake and Output 10/16/17 10/17/17 19:00 07:00 Intake Total 500 ml Balance 500 ml Intake Oral 500 ml # Voids 3 3 Laboratory Tests 10/17/17 05:10: Sodium Level 138, Potassium Level 4.5, Chloride Level 103, Carbon Dioxide Level 28, Anion Gap 7, Blood Urea Nitrogen 17, Creatinine 1.3, Estimat Glomerular Filtration Rate > 60, Glucose Level 91, Calcium Level 9.2 Height (Feet): 5 Height (Inches): 8.00 Weight (Pounds): 175 General Appearance: no apparent distress, alert EENT: normal ENT inspection Neck: non-tender, supple Cardiovascular: normal rate, regular rhythm Respiratory/Chest: lungs clear, normal breath sounds Abdomen: non tender, soft Edema: no edema noted Arm (L), no edema noted Arm (R), no edema noted Leg (L), no edema noted Leg (R), no edema noted Pedal (L), no edema noted Pedal (R), no edema noted Generalized Billy Riley M.D. Oct 17, 2017 08:33
--- NOTE | 2017-10-17 08:35 | Discharge Instructions ---
Discharge Instructions Discharge Instructions Diet: 2 GM sodium (low sodium) Resume Normal Activity?: Yes Activity: light activity, ambulate, as tolerated Pneumonia Vaccine: vaccine not indicated Influenza Vaccine (Jan to Jun): vaccine not indicated Follow Up Orders Follow up with primary care doctor on ThursdayOctober 19 For Congestive Heart Failure Reminder Report to your physician any weight gain of 5 pounds or more in one week. Billy Riley M.D. Oct 17, 2017 08:35
[2017-10-17 09:13] VITALS: BP 130/78
[2017-10-17] MEDS: Lactulose 20gm/30ml UDC ORAL SCH (09:27)
[2017-10-17] MEDS: Docusate 100mg cap ORAL SCH (09:27)
[2017-10-17] MEDS: Aspirin EC 81mg tab ORAL SCH (09:28)
[2017-10-17] MEDS: Morphine Sulfate 2mg/ml Inj IVP PRN (09:29)
[2017-10-17] MEDS: Enoxaparin 40mg Inj SUBQ SCH (10:00)
--- NOTE | 2017-10-19 12:45 | Discharge Summary ---
Discharge Summary Discharge Summary _ DATE OF ADMISSION: 10/14/2017 DATE OF DISCHARGE: 10/17/2017 REASON FOR ADMISSION: 63 years old male with past medical history significant for hyperlipidemia, gout, BPH, presented to emergency room for evaluation due to severe back pain with radiation to both legs. Patient denied saddle numbness, fever, incontinence, blood thinners, oncological problems, trauma. Patient reported having this issue for several months , but 2 days ago the symptoms got worse. Patient reported severe pain and weakness while standing. Pain worsened when he bends over or sits. Upon evaluation vital signs were stable. Laboratory workup revealed no leukocytosis, stable hemoglobin and hematocrit. Urinalysis was negative for evidence of UTI . BUN 18 creatinine 1.4 . LFT within normal limits. Uric acid 6.2. CT of the lumbar spine revealed no evidence of acute fracture or misalignment. Patient admitted with diagnosis of intractable back pain, renal insufficiency , hyperlipidemia CONSULTANTS: neurologist Dr. Willis [facility]SE: Patient admitted to medical surgical floor. Neurology consult was requested. Patient undergone MRI of the lumbar spine which revealed mild degenerate to lumbar spondylosis. No evidence of nerve root compression, or significant stenosis of the central canal or forearm. Neurologist seen and evaluated patient and concluded , that the patient's history and neurological examination were most compatible with the lumbosacral spine strain syndrome with radicular features. Patient was started on short pulse of Medrol 3 times a day for 7 days along with Flexeril twice a day with the intention to up -titrate as tolerated. Patient was also encouraged to increase activity as tolerated. Patient was working with physical therapists. Fall precautions were maintained. As pain became controlled with the current regimen , patient gradually increase activity. DVT prophylaxis provided. Patient was continued on colchicine. Renal parameters electrolytes were closely monitored , nephrotoxins were avoided ; creatinine from 1.4 down to 1.3 . Patient had chronic kidney disease , stage III Recommended outpatient evaluation for chronic kidney disease. Bowel regimen instituted Patient was continued on statin. Patient significantly improved , pain controlled. Patient was taken stable for discharge FINAL DIAGNOSES: Lumbosacral spine strain syndrome with radicular features Hyperlipidemia Chronic kidney disease stage 3a DISCHARGE MEDICATIONS: See Medication Reconciliation list. Continue Medrol and Flexeril for total of 7 days DISCHARGE INSTRUCTIONS: Patient was discharged home. Follow up with primary care provider on October 19. Patient will need evaluation as outpatient for chronic kidney disease. I have been assigned to dictate discharge summary for this account. I was not involved in the patient's management. Jaqueline Zamora NP Oct 19, 2017 12:45
== END 2017-10-17 11:45 | disposition home or self-care (01) | DRG 347 ==
LOC: EDBD 10:32 → EMR 10:59 → 4W 15:00 → EDBEDREQ 15:22
DX: S33.5XXA Sprain of ligaments of lumbar spine, initial encounter (principal); N18.3 Chronic kidney disease, stage 3 (moderate); X58.XXXA Exposure to other specified factors, initial encounter; E78.5 Hyperlipidemia, unspecified; M10.9 Gout, unspecified; N40.0 Benign prostatic hyperplasia without lower urinary tract symptoms; M54.17 Radiculopathy, lumbosacral region; E11.9 Type 2 diabetes mellitus without complications
CPT/HCPCS: 36415; 72131; 72148; 80048; 80053; 81001; 82550; 84550; 85025; 85610; 85651; 85730; 99285; J2405